=== PATIENT | male | born 1960 | race Caucasian/White ===

== ENCOUNTER → 2021-06-11 10:19 | Outpatient (CLI) | payer OTHER, MEDICAID, SELFPAY ==
[2021-06-11 11:31] LABS: Add Manual Diff / Slide Review NO; Basophils Absolute Auto 100 /uL (0-100); Basophils Percent Auto 1.2 % (0-2); Eosinophils Absolute Auto 400 /uL (0-450); Eosinophils Percent Auto 5.8 % (2-4); Hematocrit 43.1 % (41-53); Hemoglobin 14.6 g/dL (13.5-17.5); Lymphocytes Absolute Auto 1500 /uL (1100-4500); Lymphocytes Percent Auto 22.2 % (25-40); Mean Corpuscular HGB Conc 33.9 % (30-36); Mean Corpuscular Hemoglobin 29.4 PG (26-34); Mean Corpuscular Volume 86.7 fL (80-100); Monocytes Absolute Auto 600 /uL (0-900); Monocytes Percent Auto 8.7 % (3-14); Neutrophils Absolute Auto 4100 /uL (1500-7000); Neutrophils Percent Auto 62.1 % (50-75); Platelet Count 245 X10^3/uL (150-400); Red Blood Cell Count 4.97 X10^6/uL (4.5-5.9); Red Cell Distribution Width 14.1 % (11.6-14.8); White Blood Cell Count 6.7 X10^3/uL (4.5-11.0)
[2021-06-11 12:00] LABS: Hemoglobin A1C% w Est Avg Glu 5.2 % (4.0-6.0)
[2021-06-11 13:09] LABS: Alanine Aminotransferase 37 IU/L (<50); Albumin 5.1 g/dL (3.5-5.0); Albumin Globulin Ratio 1.6 (1.0-2.8); Alkaline Phosphatase 70 U/L (38-126); Aspartate Aminotransferase 34 IU/L (17-59); BUN Creatinine Ratio 13.6 (6-22); Bilirubin Total 0.8 mg/dL (0.2-1.3); Blood Urea Nitrogen 15 mg/dL (9-20); Calcium 11.1 mg/dL (8.4-10.2); Carbon Dioxide 30 mmol/L (22-32); Chloride 101 mmol/L (98-107); Cholesterol 243 mg/dL (140-199); Estimated Glomerular Filt Rate > 60.0 mL/min (>60); Globulin 3.2 g/dL (1.7-4.1); Glucose 97 mg/dL (80-110); HDL Cholesterol 54 mg/dL (40-60); HEMOLYSIS < 15 (0-50); LDL Cholesterol Calculated 165 mg/dL (<100); Potassium 5.2 mmol/L (3.4-5.1); Sodium 139 mmol/L (137-145); Total Protein 8.3 g/dL (6.3-8.2); Triglycerides 121 mg/dL (35-150)
[2021-06-11 13:32] LABS: Prostate Specific Antigen Scrn 1.58 ng/mL (0.1-4.0)
== END ==
PROVIDERS: Family Provider Family Medicine; PCP Family Medicine; Referring Provider Orthopaedic Surgery; Visit Provider Orthopaedic Surgery
DX: R73.9 Hyperglycemia, unspecified; E83.52 Hypercalcemia; I10 Essential (primary) hypertension; Z01.818 Encounter for other preprocedural examination; Z01.812 Encounter for preprocedural laboratory examination; Z12.5 Encounter for screening for malignant neoplasm of prostate
CPT/HCPCS: 36415; 80053; 80061; 82306; 83036; 85025; 93005; 93010; G0103

== ENCOUNTER → 2021-07-08 10:04 | Outpatient (CLI) | payer OTHER, MEDICAID, SELFPAY ==
[2021-07-08 11:37] LABS: COVID19 -Nasal RAPID Negative (Negative)
== END ==
PROVIDERS: Family Provider Family Medicine; PCP Family Medicine; Referring Provider Family Medicine Sleep Medicine; Visit Provider Family Medicine Sleep Medicine
DX: Z20.822 Contact with and (suspected) exposure to COVID-19 (principal)
CPT/HCPCS: 87635; C9803

== ENCOUNTER 2021-07-10 06:04 | Day surgery (SDC) | payer OTHER, MEDICAID, SELFPAY ==
[2021-07-04 09:48] VITALS: BMI 30.5
[2021-07-10] VITALS (15 sets, daily range): BP systolic 105–147; BP diastolic 54–89; PULSE 65–90; RESP 13–18; TEMP 36.1–36.8; O2SAT 93–97; BMI 30.5
--- NOTE | 2021-07-10 06:42 | DI.RAD.S_ITS ---
PROCEDURE: XR KNEE RT 1TO2V INDICATIONS: prosthesis placement TECHNIQUE: 2 view(s) of the knee acquired. COMPARISON: [facility] [place], [place], XR KNEE 4+ VIEWS RIGHT, 04/29/2021, 10:27. [facility], CICI, KNEE 3V RIGHT, 09/27/2013, 11:53. FINDINGS: Bones: Patient is status post knee joint arthroplasty. Hardware components are in expected positions. Visualized bony structures are intact. Soft tissues: Overlying postoperative changes are noted. IMPRESSION: Right knee arthroplasty is present with postsurgical changes as above. Dictated by: Talia Kenny M.D. on 07/10/2021 at 11:02 Approved by: Talia Kenny M.D. on 07/10/2021 at 11:02
[2021-07-10] MEDS: PREGABALIN 75 MG CAPSULE PO (06:55)
[2021-07-10] MEDS: CELECOXIB 200 MG CAPSULE PO (06:55)
[2021-07-10] MEDS: ACETAMINOPHEN 325 MG TABLET 975 MG PO (06:55)
[2021-07-10] MEDS: LACTATED RINGERS 1,000 ML 42 ML IV ×2 (07:05→10:03)
--- NOTE | 2021-07-10 08:01 | PM.PREOP ---
Pre-operative Note COVID-19 COVID-19 status: Negative Result date/Date tested (Pos, Neg/Pending): 07/08/21 Interval Note History & Physical reviewed/Exam performed by Physician: Yes Changes to H&P: No
[2021-07-10] MEDS: CEFAZOLIN 2 GM/20 ML SYRINGE IV (08:40)
[2021-07-10] MEDS: TRANEXAMIC ACID 1,000 MG VIAL 1000 MG INJ ×2 (08:55→09:55)
--- NOTE | 2021-07-10 09:08 | SUR.OPER ---
Supine on padded OR bed. Pillow under head, arms secured on padded armboards <90 degree abduction. Safety belt across torso. Non-operative leg secured with tape over blanket over lower leg. Operative leg secured in DeMayo positioner. Foam padded brace at thigh of operative leg.
[2021-07-10] MEDS: MORPHINE 4 MG/ML INJ INJ (09:45)
[2021-07-10] MEDS: BUPIVACAINE LIPOSOME 266 MG/20 ML VIAL INJ (09:45)
[2021-07-10] MEDS: BUPIVACAINE 0.25% (PF) 60 ML, EPINEPHrine 0.3 MG INJ (09:45)
--- NOTE | 2021-07-10 10:21 | PM.OP.1 ---
Operative Date/Time/Diagnoses Date of procedure: 07/10/21 Time of procedure: 10:21 Pre-op diagnosis: Right knee osteoarthritis Post-op diagnosis: same Procedure & Clinicians Procedure: Right total knee replacement Same procedure as scheduled: Yes Indications: The patient has had progressively worsening right knee pain with radiographic changes consistent with arthritis. Non-operative management has failed and the patient has requested total knee replacement. The risks, benefits and alternatives to surgery were discussed with the patient prior to proceeding. Risks discussed included, but were not limited to, failure to relieve pain, stiffness, infection, nerve damage, deep venous thrombosis, pulmonary embolism, stroke, coma, heart attack, permanent paralysis and , as well as the potential need for eventual revision of the prosthetic. Surgeon: Jose Armando Delgado Rig Manager: Mejia Healy Click Yes if Unassisted: No Anesthesia Type: General, Spinal and Local Operative Notes Findings: Severe medial and moderate patellofemoral osteoarthritis. Significant varus deformity. Closure Type: primary Specimen(s): none sent Prosthetic devices, grafts, tissues, transplants, or devices: Implants used in this procedure were manufactured by the [employer] and [employer] and included the BCS II Journey total knee replacement with a size 7 right Oxinium femoral component. The size 6 right non porous tibial base plate, a 10 mm cross-linked polyethylene tibial insert and a 38 mm oval Sydnie II patella. Applied: implant(s) Estimated Blood Loss (mL): 25 Blood products transfused: none Tourniquet time (min): 52 Procedure in detail: The patient was seen in the pre-operative area, where the patient identified the right knee as the operative site and this was marked with my initials. The patient received pre-operative antibiotics, and was taken to the operating room and placed on the operative table in the supine position. After satisfactory anesthesia, a tonnage compilation clerk out was performed. The right leg was encircled with a tourniquet about the proximal thigh, and the leg was prepared from the toes to the tourniquet with ChloroPrep in the usual fashion and draped through sterile drapes. The leg was elevated and exsanguinated with Eschmark bandage and the tourniquet inflated to 250 mmHg pressure. The knee was approached through an approximately 18 cm incision centered over the patella and carried into the knee through a medial parapatellar arthrotomy. The anterior osteophytes and soft tissues were removed. The rotational landmarks of Nobles's line and the transepicondylar axis were marked on the femur with electrocautery, and intramedullary guide holes for the femur and tibia were created. The distal femoral cut was made in 6 degrees of valgus using the intramedullary guide at the primary cut setting. The proximal tibial cut was then made using the intramedullary guide, taking 9 mm of bone off the less involved side. The extension gap was checked and the rotation of the femoral component confirmed with the gap balancing system. The anterior, posterior and chamfer cuts were then made. The posterior osteophytes and soft tissues were then removed. The posterior capsule was injected with part of a mixture of 60 ml 0.25% Marcaine mixed with 20 ml Exparel and 4 mg of morphine for post-operative pain control. The remainder of this mixture was injected into the capsule and subcutaneous tissues during cement curing. The tibia was prepared with the rotation set by an extra medullary guide. Trial tibial and femoral components were then placed and the intercondylar notch cut through the femoral trial. Range of motion was 0-135 degrees, with good stability throughout the range. The patella was then cut to accommodate the patellar prosthetic. There was no need for a lateral release. The trials were then removed, and the femoral hole plugged with a bone plug. The bone was prepared with pulsatile lavage, and dried with a sponge. Cement was applied and the final prosthetics placed. Excess cement was removed during and after cement curing. After confirming there was no extruded cement posteriorly, the final tibial insert was placed. The knee was copiously irrigated and the tourniquet deflated. Hemostasis was obtained. The capsule was closed with interrupted # 2 polyester suture. The subcutaneous layer was closed with 3-0 Vicryl, and the skin with a running 3-0 V-Lock suture and Dermabond. An Aquacel Ag dressing was applied and the patient was taken to recovery having tolerated the procedure well. Complications: none Post-operative Condition: stable Disposition: PACU Plan for aftercare: The patient will be maintained on a standard total knee replacement protocol with weight bearing as tolerated. The patient will receive aspirin and sequential compression devices for DVT prophylaxis. The patient will be discharged home when safe for the home environment.
[2021-07-10] MEDS: LACTATED RINGERS 1,000 ML 100 ML IV ×2 (11:33→20:15)
--- NOTE | 2021-07-10 14:30 | PT.IIE ---
Current Diagnoses Unilateral primary osteoarthritis, right knee (07/10/21) Surgery Performed Operation Date: 07/10/21 07:45 Actual Procedures p Total Knee Arthroplasty(Right) - Jose Armando Delgado MD Surgical History (Last Updated 07/07/21 @ 19:58 by Jade Ochoa) Anesthesia Medical History (Last Updated 07/07/21 @ 19:58 by Jade Ochoa) Acid reflux Chronic pain of right knee Diverticulosis Hepatitis B (~1993) Hx of malignant melanoma (~2015) Plantar warts (~1969) Physical Therapy Inpatient Evaluation/Re-Eval M1 PT/OT-IP Prior Functional Status Start: 07/10/21 13:03 Freq: NEEDED Status: Active Protocol: Document 07/10/21 14:30 AW (Rec: 07/10/21 15:01 AW [id number]) Medical Review Prior Functional Status Medical History Reviewed Yes Communication WNL. Pt is an effective verbal communicator. Mobility and Gait Independent without AD and without meaningful limit. Activities of Daily Living and IADL's Independent. Pt drives. Social History Household Members none Living Arrangements House Number of Floors (Floors) One Floor Number of Stairs To Enter/Railing? 1 platform step without rail. Pt will be able to use W Home Environment High Toilet,Walk in Shower, Built-In Shower Seat Home Equipment Front Wheel Walker,Quad Cane, Hand Held Shower Additional Social History Comment Pt lives alone in [place]. His partner, Thierry, is visiting from [place] and will stay several weeks. Thierry is able to assist. M2 PT-IP Current Condition Start: 07/10/21 13:03 Freq: NEEDED Status: Active Protocol: Document 07/10/21 14:30 AW (Rec: 07/10/21 15:01 AW [id number]) Physical Therapy Current Condition Current Condition Evaluation Date 07/10/21 Treatment Diagnosis R TKA; difficulty in walking Onset Date 07/10/21 M3 PT-IP Subjective Start: 07/10/21 13:03 Freq: NEEDED Status: Active Protocol: Document 07/10/21 14:30 AW (Rec: 07/10/21 15:01 AW [id number]) Subjective Physical Therapy Visit Type Type Initial Evaluation Visit Start Time 13:50 Visit Stop Time 14:30 Total Visit Minutes 40 Notes Pt's partner, Thierry, was present and taking notes throughout the evaluation. Physical Therapy Visit Comments Patient Comments Pt is slightly groggy and still having some numbness on posterior thighs but wants to try to get up. Patient Goals Return home with SO support Therapy Pain Assessment Pain When Pain Assessed During Mobility Pain Present Pain Present Pain Reported Location R knee Intensity 1 Scale Used Numeric (0 - 10) Description Aching,Dull Pain Management Techniques Apply Cold,Elevation,Re- positioning M4 PT-IP Mobility and Gait Start: 07/10/21 13:03 Freq: NEEDED Status: Active Protocol: Document 07/10/21 14:30 AW (Rec: 07/10/21 15:01 AW [id number]) PT-Bed Mobility Assessment Supine to Sit Supine to Sit Standby Assistance Scooting Scooting to Edge of Bed Standby Assistance PT-Transfer Assessment Sit to and From Stand Sit to and from Stand Contact Guard Assistance,1 Person Assistance,Use of Upper Extremities Equipment Transfer Assistive Device Gait Belt,Front Wheeled Walker Orthotic/Prosthetic Devices or Brace: No Transfers Transfer Destination Chair Transfer Technique amb with FWW Transfer Ability Level of Assist Contact Guard Assistance,1 Person Assistance,Use of Upper Extremities Comments Mobility Comments Pt was sitting up in bed as PT arrived. BP was 109/67 HR 72. Educated pt on weightbearing status and strategies for mobility with FWW. Pt completed supine exercises to initiate ROM and quad activation. Pt sat up EOB on the right side SBA and denied lightheadedness. He stood CGA and used FWW to steady himself as he practiced lateral weight shifting. He agreed to ambulate, walking around the foot of the bed with FWW CGA/ min assist. Pt had R knee buckling x 2 requiring assist for stability. PT cued quad facilitation. Pt transferred to the chair CGA. He completed another sit <> stand CGA and was left in the chair with fresh ice packs to right knee, call light and tray table in reach. Informed RN that pt was just starting to have some knee discomfort and requesting medication. BP after activity was 114/63 HR 72. Gait Assessment Gait Gait Assistance Required: Contact Guard Assist,Minimum Assistance,1 Person Assist Distance (Feet) 20 Able to Maintain Weight Bearing Status Yes During Gait Assistive Devices Assistive Device Gait Belt,Front Wheeled Walker Orthotic/Prosthetic Devices or Brace: No Gait Deviations General Gait Pattern Antalgic,Decreased Stride Length,Decreased Feet Clearance,Step-to Gait Factors Limiting Gait Function Factors Limiting Gait Function Decreased Sensation,Decreased Strength,Pain,Poor Balance, Poor Safety Awareness Comments Gait Comments Pt was somewhat groggy from anesthesia and did require min cues to attend to task. See mobility comments for details. Stair Climbing Assessment Comments Stair Climbing Comments Not assessed. PT-Balance Assessment Sitting Balance and Reactions Static Sitting Balance Ability Good Dynamic Sitting Balance Ability Good Standing Balance and Reactions Static Standing Balance Ability Fair Dynamic Standing Balance Ability Poor Device Used FWW M5 PT-IP Objective Assessments Start: 07/10/21 13:03 Freq: NEEDED Status: Active Protocol: Document 07/10/21 14:30 AW (Rec: 07/10/21 15:01 AW [id number]) Orientation Orientation/Cognition Orientation Name,Day of Week,Place, Situation Language Function Ability No Deficits Noted Safety Awareness Decreased Safety Awareness Comments Decreased safety awareness secondary to anesthesia. Gross Range of Motion Lower Extremity ROM Assessment Right Impaired Strength Lower Extremity Strength Assessment Right Impaired Hip 4/5 Knee 3+/5 Comments Strength Comments LLE grossly 5/5 Sensation Assessment Sensation Gross Sensation Right LE Impaired Light Touch Impaired Sensation Description Numbness Muscle Tone Muscle Tone WNL Yes M6 PT-IP Treatment Start: 07/10/21 13:03 Freq: NEEDED Status: Active Protocol: Document 07/10/21 14:30 AW (Rec: 07/10/21 15:01 AW [id number]) Physical Therapy Treatment Exercises Exercises Ankle Pumps,Quad Sets,Heel Slides,Passive Knee Extension Hang Knee ROM Measurement 0-75 Education Education Provided Weight Bearing Status,Post-Op Packet,Safety Other Treatments Other Treatment Performed Educated pt and his partner on PT plan of care, weightbearing status, safe use of FWW, and ROM focus in early phase of rehab. M7 PT-IP Assessment and Plan Start: 07/10/21 13:03 Freq: NEEDED Status: Active Protocol: Document 07/10/21 14:30 AW (Rec: 07/10/21 15:01 AW [id number]) PT Summary Assessment and Plan Potential Rehabilitation Potential Good Status of Condition at Evaluation Evolving Summary Impairments Pain,ROM,Strength,Balance, Sensation,Bed Mobility, Transfers,Gait Assessment Summary Keshav is an active 61 yo man seen for PT evaluation on POD0 following R TKA. He is independent in all regards at baseline. He was still numb in posterior thighs and slightly groggy on evaluation; he required CGA to min assist for transfers and short distance gait with FWW. PT anticipates pt will progress during his hospital stay and be safe to discharge home with the assist of his partner once medically stable. Pt has outpatient PT scheduled for early next week. Goals Bed Mobility Goal Independent Transfer Goal Standby Assistance,Front Wheeled Walker Gait Goal Standby Assistance,Front Wheel Walker Gait Distance 200 Other Goals - up/down platform step x 1 with FWW SBA Days to Meet Goals 2 Frequency of Treatment Frequency Of Treatment Twice a Day Treatment Plan Physical Therapy Treatment Plan Bed Mobility Training,Transfer Training,Gait Training, Therapeutic Exercise,Balance Retraining,Post Op Education, Discharge Planning,Hot or Cold Pack,Neuromuscular Re-ed Other Recommendations and Next Treatment review ther ex with ROM focus; Focus transfers and gait with FWW; platform step Weight Bearing Status Weight Bearing Status Weight Bear as Tolerated Allowed Weight Bearing Amount (enter % WBAT RLE or #) (%) Recommendations To Nursing Amount of Assist Needed 1 Person Assist Discharge Recommendations PT Discharge Recommendations Home with Assistance, Outpatient PT Transportation Needs at Discharge Private Vehicle
[2021-07-10] MEDS: ACETAMINOPHEN 325 MG TABLET 650 MG PO ×2 (14:32→20:15)
[2021-07-10] MEDS: OXYCODONE IR 5 MG TABLET PO ×2 (18:27→23:08)
[2021-07-10] MEDS: IBUPROFEN 400 MG TABLET PO (18:27)
[2021-07-10] MEDS: ASPIRIN EC 81 MG TABLET PO (20:16)
[2021-07-10] MEDS: DOCUSATE 100 MG CAPSULE PO (20:16)
[2021-07-10] MEDS: CALCIUM CARBONATE 500 MG TAB PO (23:37)
[2021-07-11 03:00] VITALS: BP 136/71; PULSE 76; RESP 16; TEMP 36.6; O2SAT 96
[2021-07-11 05:23] LABS: Hematocrit 33.2 % (41-53); Hemoglobin 11.5 g/dL (13.5-17.5)
[2021-07-11 07:29] VITALS: O2SAT 96
--- NOTE | 2021-07-11 07:32 | P.DS_ITS ---
History of Present Illness History of Present Illness Date Patient Seen: 07/11/21 Time Patient Seen: 07:32 Chief complaint: RT TKA Narrative: The history and physical is contained the chart previously completed note. Please refer to that note for this information. Discharge Providers Provider Date of admission: July 10, 2021 Discharge Date: 07/11/21 Primary care physician: Kev Bloom DO Consults: 07/10/21 10:57 Consult to Discharge Planning Routine Comment: Consult to Physical Therapy Evaluate & Treat Comment: Physician Instructions: postop TKA protocol Discharge provider: Jose Armando Delgado MD Summary Hospital Course Discharge Diagnosis: 1. Right knee osteoarthritis 2. Post hemorrhagic anemia 3. Temporary urinary retention. Hospital Course: Patient was admitted to the hospital and taken directly to the operating room on July 10, 2021. He underwent a right total knee replacement without complicatio ns. He was stable overnight although he did have trouble urinating initially. This resolved spontaneously once the spinal had completely worn off. On postoperative day 1 he had reasonable pain control and was thought to be ready for discharge. He had a mild post hemorrhagic anemia which will not require specific treatment. Status at Discharge Cognitive/behavioral status at discharge: at baseline, oriented Functional status at discharge: uses cane/walker Overall status at discharge: patient is progressing back to baseline Time Spent with Patient Time spent: Less than 30 minutes Exam Vital Signs (past 8 hours): - 07/11/21 03:00 07/11/21 07:29 Temperature 97.8 F Pulse Rate 76 Respiratory Rate 16 Blood Pressure 136/71 Pulse Oximetry 96 96 Oxygen Delivery Method Room Air Oxygen Flow Rate 0 Narrative Exam Narrative: Right knee wound is dressed with no drainage on the bandage. Calf is soft. Light touch and motion are intact in the right lower extremity. Objective Labs Result Diagrams: 07/11/21 05:00 Labs: Laboratory Results - last 24 hr 07/11/21 05:00 Hgb 11.5 L Hct 33.2 L PFSH Medical History (Updated 07/07/21 @ 19:58 by Jade Ochoa) Acid reflux Chronic pain of right knee Diverticulosis Hepatitis B (~1993) Hx of malignant melanoma (~2015) Plantar warts (~1969) Surgical History (Updated 07/07/21 @ 19:58 by Jade Ochoa) Anesthesia History of colonoscopy Family History (Updated 04/10/22 @ 20:06 by Jade Ochoa) Father Diabetes mellitus Hypertension Hyperlipidemia Bladder cancer Mother Cancer Grandfather Cancer Grandmother Infection Grandfather History of heart disease Grandmother Cancer Social History household members: none Smoking Status: Never smoker alcohol intake: current substance use type: marijuana Discharge Assessment & Plan Assessment and Plan Assessment: Stable postoperative day 1 status post right total knee replacement. He had some urinary retention last night due to the spinal but this appears to have resolved. He does have a mild post hemorrhagic anemia which should not require specific treatment. Plan of Treatment: Discharged home today with follow-up at my office in 10-14 days. He has been given discharge prescriptions for oxycodone and Vistaril and suggestions for the use of ibuprofen and Tylenol for additional pain control as well as aspirin for DVT prophylaxis. Discharge Plan Discharge Plan Patient Disposition: Home Discharge orders & Medications Discharge Orders: Discharge (Order); Ordered 07/11/21 Ordered By: Jose Armando Delgado Prescriptions: New acetaminophen 325 mg Tablet 650 mg PO TID 30 Days Qty: 180 0RF aspirin 81 mg Tablet,Delayed Release (Dr/Ec) 81 mg PO BID 42 Days Qty: 84 0RF oxycodone 5 mg Tablet 5 mg PO Q4H PRN (Reason: Pain, Moderate (4-6)) Qty: 40 0RF hydroxyzine pamoate 25 mg Capsule 25 mg PO Q6HR PRN (Reason: Nausea) Qty: 30 0RF Continued lisinopril 10 mg tablet 10 mg PO DAILY Qty: 90 1RF ibuprofen 200 mg Capsule 400 mg PO Q6H PRN (Reason: Pain) 0RF Follow up/Referrals: Jose Armando Delgado MD [Physician] - 2 Weeks Kev Bloom DO [Primary Care Provider] - Diet/Activity/Treatments Diet: Diet as Tolerated and Regular Activity: You may bear weight as tolerated on your right leg. Cold/Heat Therapy: You may apply ice to the right knee for 15 minutes every hour as needed for pain control. Skin/Wound/Dressing Care Report to your healthcare provider any signs of infection, such as:: chills, fever, night sweats, increased pain, unusual drainage and unusual redness Dressing: You may remove the Niraj wrap 3 days after surgery and shower normally with the deeper dressing in place. Leave the deeper dressing in place until your postoperative follow-up. If the central strip of the deeper dressing becomes saturated with either water or blood, please call the office to have it evaluated. Visit Report/Discharge Packet Instructions: DI for Knee Replacement Stand Alone Forms: Surgery Discharge Discharge Data Primary Care Provider: Kev Bloom Attending Provider: Jose Armando Delgado Quality VTE Deep Vein Thrombosis/Pulmonary Embolism Present on Admission: No
[2021-07-11 08:00] VITALS: BP 122/70; PULSE 71; RESP 16; TEMP 37; O2SAT 97
[2021-07-11 08:18] VITALS: BP 122/70; PULSE 71
[2021-07-11] MEDS: DOCUSATE 100 MG CAPSULE PO (08:18)
[2021-07-11] MEDS: lisinopriL 10 MG TABLET PO (08:18)
[2021-07-11] MEDS: ASPIRIN EC 81 MG TABLET PO (08:18)
[2021-07-11] MEDS: OXYCODONE IR 5 MG TABLET PO ×2 (08:21→11:16)
[2021-07-11] MEDS: polyethylene glycoL 3350 17 GM POWD.PACK PO (08:22)
[2021-07-11] MEDS: ACETAMINOPHEN 325 MG TABLET 650 MG PO (08:22)
--- NOTE | 2021-07-11 10:13 | CM.DANOTE ---
DCP: Case received, EMR reviewed and met with patient. Life Partner, Thierry, was also at bedside. Introduced self and role. Was able to obtain information regarding patient's baseline activity level prior to hospitalization. DCP assessment completed with information currently available. Patient is a 61 year old male who admitted yesterday morning to the care of the orthopedic team. PCP: Dr. Bloom. Payer: confirmed: [employer]. Patient came to the hospital via private vehicle for a surgical procedure. Patient had a right total knee replacement. Patient has history of osteoarthritis. Met with patient in his room. He was sitting up in bed having breakfast, partner, Thierry, also at bedside. Patient is alert and oriented, pleasant. Confirmed that patient resides in [place]. At his baseline, he is independent, drives. His goal is to no longer limp when he is walking. He indicated, he has not been able to walk that far due to knee pain, and is hopeful he can walk more after the surgery. Patient's life partner Thierry, who lives in [place], is planning on staying with him at home while he recuperates. Patient is also set up with outpatient P.T. P: Patient has discharge orders for home today, he will work with P.T. again today before discharge. Anette Last RN/Television Production Assistant Discharge Planning/Care Management CM Discharge Assessment Start: 07/11/21 10:12 Freq: Status: Active Protocol: Document 07/11/21 10:12 (Rec: 07/11/21 10:13 [id number]) Discharge Planning Assessment Assigned Timber Framer Anette Last RN/Television Production Assistant Advance Directives? No History Provided By Patient,Medical Record Prior Living Arrangements House Household Members none Type of transporation used prior to Drives own vehicle admit Independent with ADL's Yes Is patient alert and oriented? Yes Caregiver for Another No Barriers to Discharge No Discharge Plan Home Transportation Arrangement Partner, Thierry Referrals Initiated None needed Whiteboard Updated in Patient Room with Yes name and ext. # of Timber Framer Review Status In Process Next Review Type Continued Stay Review Pre-Anesthesia Assessment Start: 07/04/21 09:47 Freq: Status: Complete Protocol: Document 07/04/21 09:48 CAB (Rec: 07/04/21 10:54 CAB [id number]) Pre-Anesthesia Assessment Preferred Name Bryant stuart Parr Patient Information Reviewed Via Phone Assessment Assessment Completed With Patient Diagnostic Results BMP/CMP,CBC,EKG Comment Labs/ECG @ [facility] 06/11/21, COVID screen @ 07/08/21 Primary Care Provider Kev Bloom Seen Specialist in Last 12 Months Yes Specialist Seen Opthamologist/Stamping Die Maker Bench, Orthopedist Primary Language Thai Value Stream Manager Required No Height 5 ft 10 in Weight 213 lb Body Mass Index (BMI) 30.5 Hearing Ability Normal Visual Assist Magnifying Glass Dentition Type Teeth, Natural Present,Teeth, Broken Barriers to Learning None Hx Anesthesia Reactions No: Pt does not have a prior surgical history Hx Family Anesthesia Reaction No Hx Malignant Hyperthermia No Hx Blood Transfusions No Anesthesia Review Requested Yes: PAC courtesy re: Abnormal pre-op ECG alcohol intake current Alcohol Intake Frequency Other: Occasional Smoking Status Never smoker Substance Use Type marijuana Comment Advised not to smoke marijuana 24 hours prior to surgery Pain Present Pain Reported Musculoskeletal Symptoms Abnormal Gait,Difficulty Walking,Joint Pain,Joint Stiffness History of Falling (Recent or History of No ) Patient is completely paralyzed or No completely immobile Mental Status Oriented to own ability Is patient on oxygen? No Does patient have LLOYD/SOB No Hx Sleep Apnea No Currently Taking a Beta Rick No Can You Climb a Flight of Stairs Without Yes SOB Hx Chest Pain No Hx SOB No Hx Syncope or Dizziness No Anti-Coagulant Therapy No Has a Pulp House Supervisor No Cardiac Testing No Hx Pacemaker/ICD No Pacemaker Rep Required? No Cardiac Clearance Received Not Applicable Diet Type At Home Regular dysphagia No Gastrointestinal Symptoms Diarrhea,Reflux Urinary Catheter Present No Hx Urinary Self Catheterization No Diabetes No HgbA1C 5.2 Date 06/11/21 Hx Drug Resistant Organism No Presence of External or Internal Medical No Devices Have you had any close contact with No someone diagnosed with COVID-19? Received a COVID vaccine? Yes Received all doses? Yes Marital Status Single Lives With none Prior Living Arrangements House Number of Floors (Floors) One Floor Support System Friend(s) Does the Patient Have Assistance After Yes: Thierry (friend) will stay Surgery with pt to assist w/care at [place] Patient Discharge Plan Description Return Home Comment Pt advised possible same day length of stay per surgeon Feels Safe in Current Environment Yes Been Physically Hurt or Threatened By a No Person in Current Environment Do you have thoughts of harming yourself None or others? Are you currently considering suicide? No Do you have a plan to hurt yourself or No Plan others? Do You Have Any Spiritual Beliefs That No May Affect Your HC Choices? Do You Have Any Cultural Practices That No May Affect Your HC Choices? Comment Orthodoxy Who Can We Speak to About Patient's Care Family, friends Identifying Code for Release of Patient Declines to issue Information Health Care Proxy/Next of Kin Andreea (sister) Health Care Proxy Emergency Contact Name Thierry Amaro (friend) Emergency Contact Advance Directives? No Power of Physical Plant Employee No PAC Instructions Durable medical equipment, Medications to take/avoid, Nasal antibiotic,No ETOH/ petroleum product on skin DOS, NPO,Post-op transportation,Pre -surgical wash,Sensory aids, Sturdy shoes/comfortable clothes,Do not bring valuables and remove jewelry
--- NOTE | 2021-07-11 11:06 | PT.IPTN ---
Current Diagnoses Unilateral primary osteoarthritis, right knee (07/10/21) Surgery Performed Operation Date: 07/10/21 07:45 Actual Procedures p Total Knee Arthroplasty(Right) - Jose Armando Delgado MD Physical Therapy Treatment Note M2 PT-IP Current Condition Start: 07/10/21 13:03 Freq: NEEDED Status: Discharge Protocol: Document 07/10/21 14:30 AW (Rec: 07/10/21 15:01 AW [id number]) Physical Therapy Current Condition Current Condition Evaluation Date 07/10/21 Treatment Diagnosis R TKA; difficulty in walking Onset Date 07/10/21 M3 PT-IP Subjective Start: 07/10/21 13:03 Freq: NEEDED Status: Discharge Protocol: Document 07/11/21 10:20 KS (Rec: 07/11/21 12:44 KS [id number]) Subjective Physical Therapy Visit Type Type Treatment Note Visit Start Time 10:20 Visit Stop Time 11:06 Total Visit Minutes 46 Notes Pt's partner, Thierry, was present for caregiver training. Physical Therapy Visit Comments Patient Goals Return home with SO support Therapy Pain Assessment Pain When Pain Assessed During Mobility Pain Present Pain Present Pain Reported M4 PT-IP Mobility and Gait Start: 07/10/21 13:03 Freq: NEEDED Status: Discharge Protocol: Document 07/11/21 10:20 KS (Rec: 07/11/21 12:44 KS [id number]) PT-Bed Mobility Assessment Supine to Sit Supine to Sit Standby Assistance Scooting Scooting to Edge of Bed Standby Assistance PT-Transfer Assessment Sit to and From Stand Sit to and from Stand Contact Guard Assistance,1 Person Assistance,Use of Upper Extremities Equipment Transfer Assistive Device Gait Belt,Front Wheeled Walker Orthotic/Prosthetic Devices or Brace: No Transfers Transfer Destination Chair Transfer Technique amb with FWW Transfer Ability Level of Assist Contact Guard Assistance,1 Person Assistance,Use of Upper Extremities Comments Mobility Comments Pt in bed upon arrival and SO in room. Pt SBA for sup<>sit and scooting EOB. Demonstrated to pts SO application of gaitbelt and stabilizing FWW for pt sit<>stand. Pt sit<> stand w/ FWW CGA. He then ambulated ~30 ft in hallway w/ FWW CGA. He then ascended/ descended platform step w/ FWW and CGA and cues 3 times. His SO was able to provide appropriate assist for second and third step. Pt ambulated additional 70 ft and used toilet w/ Min A by SO for slow descent onto toilet. He then returned to chair. Reveiwed exercises and safety. Pt and SO feel safe to return home. Pt left in chair w/ all needs in reach. Gait Assessment Gait Gait Assistance Required: Standby Assistance,Contact Guard Assist,1 Person Assist Distance (Feet) 100 Able to Maintain Weight Bearing Status Yes During Gait Assistive Devices Assistive Device Gait Belt,Front Wheeled Walker Orthotic/Prosthetic Devices or Brace: No Gait Deviations General Gait Pattern Antalgic,Decreased Stride Length,Decreased Feet Clearance Factors Limiting Gait Function Factors Limiting Gait Function Decreased Sensation,Decreased Strength,Pain,Poor Balance Comments Gait Comments Pt able to safely increase ambulation distance w/ FWW. Gait improved w/ distance and cues for heel toe walking and equal step length. Stair Climbing Assessment Evaluation Level of Assist On Stairs Contact Guard Assistance,1 Person Assistance Devices Stair Climbing Assistive Devices Front Wheel Walker Technique/Endurance Stair Climbing Direction Ascend and Descend Stair Climbing Technique Step to Step Number of Steps Climbed 1 Stair Climbing Set # Repetitions (reps) 3 Comments Stair Climbing Comments Pt ascended/descended platform step 3 times w/ FWW CGA provided by SO on second and third attempts. Pt w/ good awareness of correct sequence and pts SO able to provide appropriate assist and FWW stabilization. Pt and SO feel safe to complete steps at home . PT-Balance Assessment Sitting Balance and Reactions Static Sitting Balance Ability Good Dynamic Sitting Balance Ability Good Standing Balance and Reactions Static Standing Balance Ability Good Dynamic Standing Balance Ability Fair Device Used FWW M5 PT-IP Objective Assessments Start: 07/10/21 13:03 Freq: NEEDED Status: Discharge Protocol: Document 07/10/21 14:30 AW (Rec: 07/10/21 15:01 AW [id number]) Orientation Orientation/Cognition Orientation Name,Day of Week,Place, Situation Language Function Ability No Deficits Noted Safety Awareness Decreased Safety Awareness Comments Decreased safety awareness secondary to anesthesia. Gross Range of Motion Lower Extremity ROM Assessment Right Impaired Strength Lower Extremity Strength Assessment Right Impaired Hip 4/5 Knee 3+/5 Comments Strength Comments LLE grossly 5/5 Sensation Assessment Sensation Gross Sensation Right LE Impaired Light Touch Impaired Sensation Description Numbness Muscle Tone Muscle Tone WNL Yes M6 PT-IP Treatment Start: 07/10/21 13:03 Freq: NEEDED Status: Discharge Protocol: Document 07/11/21 10:20 KS (Rec: 07/11/21 12:44 KS [id number]) Physical Therapy Treatment Exercises Exercises Ankle Pumps,Gluteal Sets,Quad Sets,Heel Slides,Straight Leg Raises Education Education Provided Weight Bearing Status,Post-Op Packet,Safety Other Treatments Other Treatment Performed Completed caregiver training w / pts SO. M7 PT-IP Assessment and Plan Start: 07/10/21 13:03 Freq: NEEDED Status: Discharge Protocol: Document 07/11/21 10:20 KS (Rec: 07/11/21 12:44 KS [id number]) PT Summary Assessment and Plan Potential Rehabilitation Potential Good Status of Condition at Evaluation Evolving Summary Impairments Pain,ROM,Strength,Balance, Sensation,Bed Mobility, Transfers,Gait Assessment Summary Pt SBA for bed mobilty and SBA to CGA for transfers, ambulation, and stair training . Pt able to ambulate 100 ft w / FWW and ascend/descend platofrm step 3 times w/ FWW. Pt will have SO to assist at home as needed and he was able to successfully complete caregiver training. Pt will benefit from outpatient rehab to improve strength and ROM. Goals Bed Mobility Goal Independent Transfer Goal Standby Assistance,Front Wheeled Walker Gait Goal Standby Assistance,Front Wheel Walker Gait Distance 200 Other Goals - up/down platform step x 1 with FWW SBA Days to Meet Goals 2 Frequency of Treatment Frequency Of Treatment Twice a Day Treatment Plan Physical Therapy Treatment Plan Bed Mobility Training,Transfer Training,Gait Training, Therapeutic Exercise,Balance Retraining,Post Op Education, Discharge Planning,Hot or Cold Pack,Neuromuscular Re-ed Other Recommendations and Next Treatment review ther ex with ROM focus; Focus transfers and gait with FWW; platform step Weight Bearing Status Weight Bearing Status Weight Bear as Tolerated Allowed Weight Bearing Amount (enter % WBAT RLE or #) (%) Recommendations To Nursing Amount of Assist Needed 1 Person Assist Discharge Recommendations PT Discharge Recommendations Home with Assistance, Outpatient PT Transportation Needs at Discharge Private Vehicle
[2021-07-11] MEDS: IBUPROFEN 400 MG TABLET PO (11:15)
== END 2021-07-11 12:04 | disposition home or self-care (01) ==
LOC: OR 06:06 → AC 11:09
PROVIDERS: Family Provider Family Medicine; PCP Family Medicine; Referring Provider Orthopaedic Surgery; Visit Provider Orthopaedic Surgery
PROC: 0SRC0JZ Replacement of Right Knee Joint with Synthetic Substitute, Open Approach (ICD-10-PCS; CPT 27447; principal; 2021-07-10 07:45)
DX: M17.11 Unilateral primary osteoarthritis, right knee (principal); I10 Essential (primary) hypertension
CPT/HCPCS: 27447; 36415; 73560; 85014; 85018; 94762; 97110; 97116; 97161; 97530; C1776; C1713; C9290; J0171; J0690; J1100; J2250; J2270; J2274; J2405; J2704; J3010

== ENCOUNTER → 2021-11-20 08:02 | Outpatient (CLI) | payer OTHER, MEDICAID, SELFPAY ==
[2021-07-10 11:42] VITALS: BMI 30.5
[2021-11-20 09:28] LABS: Cholesterol 148 mg/dL (140-199); HDL Cholesterol 46 mg/dL (40-60); LDL Cholesterol Calculated 87 mg/dL (<100); Triglycerides 73 mg/dL (35-150)
== END ==
PROVIDERS: Family Provider Family Medicine; PCP Family Medicine; Referring Provider Family Medicine; Visit Provider Family Medicine
DX: E78.00 Pure hypercholesterolemia, unspecified (principal)
CPT/HCPCS: 36415; 80061

== ENCOUNTER → 2022-11-04 08:05 | Outpatient (CLI) | payer OTHER, MEDICAID, SELFPAY ==
[2021-07-10 11:42] VITALS: BMI 30.5
[2022-11-04 09:47] LABS: Add Manual Diff / Slide Review NO; Basophils Absolute Auto 100 /uL (0-100); Basophils Percent Auto 0.9 % (0-2); Eosinophils Absolute Auto 600 /uL (0-450); Eosinophils Percent Auto 7.4 % (2-4); Hematocrit 42.9 % (41-53); Hemoglobin 14.9 g/dL (13.5-17.5); Lymphocytes Absolute Auto 1600 /uL (1100-4500); Lymphocytes Percent Auto 18.8 % (25-40); Mean Corpuscular HGB Conc 34.7 % (30-36); Mean Corpuscular Hemoglobin 30.5 PG (26-34); Mean Corpuscular Volume 87.9 fL (80-100); Monocytes Absolute Auto 700 /uL (0-900); Monocytes Percent Auto 8.9 % (3-14); Neutrophils Absolute Auto 5300 /uL (1500-7000); Platelet Count 245 X10^3/uL (150-400); Red Blood Cell Count 4.89 X10^6/uL (4.5-5.9); Red Cell Distribution Width 14.1 % (11.6-14.8); White Blood Cell Count 8.3 X10^3/uL (4.5-11.0)
[2022-11-04 10:03] LABS: Alanine Aminotransferase 33 IU/L (<50); Albumin 4.6 g/dL (3.5-5.0); Albumin Globulin Ratio 1.5 (1.0-2.8); Alkaline Phosphatase 84 U/L (38-126); Aspartate Aminotransferase 39 IU/L (17-59); BUN Creatinine Ratio 17.1 (6-22); Bilirubin Total 0.9 mg/dL (0.2-1.3); Blood Urea Nitrogen 13 mg/dL (9-20); Calcium 10.2 mg/dL (8.4-10.2); Carbon Dioxide 25 mmol/L (22-32); Chloride 105 mmol/L (98-107); Cholesterol 162 mg/dL (140-199); Estimated Glomerular Filt Rate > 60 mL/min (>60); Globulin 3.1 g/dL (1.7-4.1); Glucose 100 mg/dL (80-110); HDL Cholesterol 55 mg/dL (40-60); HEMOLYSIS < 15 (0-50); LDL Cholesterol Calculated 89 mg/dL (<100); Sodium 138 mmol/L (137-145); Total Protein 7.7 g/dL (6.3-8.2); Triglycerides 92 mg/dL (35-150)
[2022-11-04 10:33] LABS: Prostate Specific Antigen Scrn 1.55 ng/mL (0.1-4.0)
== END ==
PROVIDERS: Family Provider Family Medicine; PCP Family Medicine; Referring Provider Family Medicine; Visit Provider Family Medicine
DX: E78.00 Pure hypercholesterolemia, unspecified (principal); E83.52 Hypercalcemia; I10 Essential (primary) hypertension; Z12.5 Encounter for screening for malignant neoplasm of prostate; Z85.820 Personal history of malignant melanoma of skin
CPT/HCPCS: 36415; 80053; 80061; 85025; G0103

== ENCOUNTER → 2023-10-22 08:20 | Outpatient (CLI) | payer OTHER, MEDICAID, SELFPAY ==
[2021-07-10 11:42] VITALS: BMI 30.5
[2023-10-22 08:49] LABS: Add Manual Diff / Slide Review NO; Basophils Absolute Auto 100 /uL (0-100); Basophils Percent Auto 1.1 % (0-2); Eosinophils Absolute Auto 500 /uL (0-450); Eosinophils Percent Auto 8.8 % (2-4); Hematocrit 39.9 % (41-53); Hemoglobin 13.7 g/dL (13.5-17.5); Lymphocytes Absolute Auto 1600 /uL (1100-4500); Lymphocytes Percent Auto 28.9 % (25-40); Mean Corpuscular HGB Conc 34.3 % (30-36); Mean Corpuscular Hemoglobin 30.2 PG (26-34); Mean Corpuscular Volume 88.3 fL (80-100); Monocytes Absolute Auto 600 /uL (0-900); Monocytes Percent Auto 9.8 % (3-14); Neutrophils Absolute Auto 2900 /uL (1500-7000); Neutrophils Percent Auto 51.4 % (50-75); Platelet Count 248 X10^3/uL (150-400); Red Blood Cell Count 4.52 X10^6/uL (4.5-5.9); Red Cell Distribution Width 14.1 % (11.6-14.8); White Blood Cell Count 5.6 X10^3/uL (4.5-11.0)
[2023-10-22 09:29] LABS: Alanine Aminotransferase 24 IU/L (<50); Albumin 4.2 g/dL (3.5-5.0); Albumin Globulin Ratio 1.9 (1.0-2.8); Alkaline Phosphatase 64 U/L (38-126); Aspartate Aminotransferase 30 IU/L (17-59); BUN Creatinine Ratio 19.2 (6-22); Bilirubin Total 0.7 mg/dL (0.2-1.3); Blood Urea Nitrogen 19 mg/dL (9-20); Calcium 9.7 mg/dL (8.4-10.2); Carbon Dioxide 27 mmol/L (22-32); Chloride 108 mmol/L (98-107); Cholesterol 130 mg/dL (140-199); Estimated Glomerular Filt Rate > 60 mL/min (>60); Globulin 2.2 g/dL (1.7-4.1); Glucose 90 mg/dL (80-110); HDL Cholesterol 53 mg/dL (40-60); HEMOLYSIS < 15 (0-50); LDL Cholesterol Calculated 66 mg/dL (<100); Potassium 4.5 mmol/L (3.4-5.1); Sodium 141 mmol/L (137-145); Total Protein 6.4 g/dL (6.3-8.2); Triglycerides 55 mg/dL (35-150)
[2023-10-22 12:09] LABS: Prostate Specific Antigen Scrn 1.63 ng/mL (0.1-4.0)
== END ==
PROVIDERS: Family Provider Family Medicine; PCP Family Medicine; Referring Provider Family Medicine; Visit Provider Family Medicine
DX: E78.00 Pure hypercholesterolemia, unspecified (principal); I10 Essential (primary) hypertension; Z12.5 Encounter for screening for malignant neoplasm of prostate
CPT/HCPCS: 36415; 80053; 80061; 85025; G0103

== ENCOUNTER → 2024-10-18 07:37 | Outpatient (CLI) | payer OTHER, SELFPAY ==
[2021-07-10 11:42] VITALS: BMI 30.5
[2024-10-18 09:01] LABS: Add Manual Diff / Slide Review NO; Hematocrit 42.5 % (41-53); Hemoglobin 14.9 g/dL (13.5-17.5); Lymphocytes Absolute Auto 1900 /uL (1100-4500); Mean Corpuscular HGB Conc 34.9 % (30-36); Mean Corpuscular Hemoglobin 30.9 PG (26-34); Mean Corpuscular Volume 88.6 fL (80-100); Platelet Count 205 X10^3/uL (150-400)
[2024-10-18 09:25] LABS: Alanine Aminotransferase 29 IU/L (<50); Albumin 4.5 g/dL (3.5-5.0); Albumin Globulin Ratio 1.8 (1.0-2.8); Alkaline Phosphatase 76 U/L (38-126); Blood Urea Nitrogen 17 mg/dL (9-20); Calcium 10.3 mg/dL (8.4-10.2); Carbon Dioxide 27 mmol/L (22-32); Chloride 104 mmol/L (98-107); Cholesterol 133 mg/dL (140-199); Estimated Glomerular Filt Rate > 60 mL/min (>60); Globulin 2.5 g/dL (1.7-4.1); Glucose 78 mg/dL (70-99); HDL Cholesterol 47 mg/dL (40-60); HEMOLYSIS < 15 (0-50); Potassium 4.6 mmol/L (3.4-5.1); Sodium 139 mmol/L (137-145); Total Protein 7.0 g/dL (6.3-8.2); Triglycerides 80 mg/dL (35-150)
== END ==
PROVIDERS: Family Provider Family Medicine; PCP Family Medicine; Referring Provider Family Medicine; Visit Provider Family Medicine
DX: Z12.5 Encounter for screening for malignant neoplasm of prostate (principal); I10 Essential (primary) hypertension; E78.00 Pure hypercholesterolemia, unspecified
CPT/HCPCS: 36415; 80053; 80061; 85025; G0103